=== PATIENT | female | born 1955 | race Caucasian/White ===

== ENCOUNTER 2016-07-02 23:35 | Inpatient (IN) | payer OTHER ==
[~2016-07-02] VITALS: Ht 163.8 cm; Wt 61.6 kg
[~2016-07-02 23:35] MED LIST: ACET-97 PO; ALEN35TA31 PO; ASCO500T8 PO; BENEDRYL PO; CA C1TAB87 PO; CHOL500011 PO; DIAZ5TAB3 PO; FLUT16SP2 NS; GABA-502 PO; LETR2.5T4 PO; MAG770OR3 PO; OMEP-113 PO; OXYC-245 PO; PAMPRIN PO; SOLI5TAB2 PO; SULI150T PO; [UNRECOGNIZED DRUG - OTHER] PO
[2016-07-02 23:36] VITALS: BP 156/98; PULSE 122; RESP 21; O2SAT 98
[2016-07-02 23:44] VITALS: BP 155/88; PULSE 118; RESP 23; O2SAT 100
[2016-07-02] MEDS ORDERED: 0.9% Sodium Chloride 1,000 ML IV ONE (23:49)
--- NOTE | 2016-07-02 23:49 | ED.REPORT ---
HPI-Chest Pain 40 and Over Date of Service July 02, 2016 ED Provider: Robina EspitiaO. A 60 year old female with a medical history including OA, GERD, and breast cancer s/p right mastectomy presents to the ED with pleuritic substernal chest pain onset 2300 this evening, waking her up. The pain is described as "pressure " and "tightness," with radiation into her neck and left jaw. The patient also reports shortness of breath. She denies cough, nausea, vomiting, or other symptoms. The patient has never had similar symptoms in the past. Nursing Notes Stated Complaint: CHEST PAIN Chief Complaint: Dysrhythmia/Cardiac Nursing Notes Reviewed: Yes Allergies: Coded Allergies: hydromorphone (Verified Allergy, Severe, SEVERE DRUGGED FEELING + NAUSEA, 03/13/13) hydrocodone (Verified Adverse Reaction, Severe, NAUSEA, 03/13/13) oxybutynin (Verified Adverse Reaction, Severe, DRY MOUTH, LIGHT-HEADED, ) sumatriptan (Verified Adverse Reaction, Severe, NAUSEA, TACHYCARDIA, LIGHT -HEADED, 03/13/13) sumatriptan succinate (Verified Adverse Reaction, Severe, NAUSEA, TACHYCARDIA, LIGHT-HEADED, 03/13/13) tolterodine tartrate (Verified Adverse Reaction, Unknown, DECREASED LIBIDO , 05/14/14) Uncoded Allergies: DIETARY (Adverse Reaction, Severe, JOINT PAIN,CONNOLLY,SCRATCHY THROAT, 03/13/13) CLAUDIO'S YEAST,BLACK TEA,MUNG SILVERIO SPROUTS,HONEY,CINNAMON,MSG,SODIUM BENZOATE,SACCHARIN,ASPERTAME,SULFUR DIOXIDE Scheduled ([Dante B Supplement]) 1 CAP PO BID 2 IN AM; 1 IN PM ([Pamprin]) 2 TAB PO PRN ([Benedryl]) 25 MG PO HS PRN Acetaminophen (Apap) 500 Mg Tablet 500-1,000 MG PO PRN Alendronate (Alendronate) 35 Mg Tablet 70 MG PO QW Ascorbic Acid (Vitamin C) 500 Mg Tablet 500 MG PO DAILY Ca Carbonate/Vitamin D3/Vit K (Citracal Soft Chew) 1 Each Tab.chew 1 EACH PO TID Cholecalciferol (Vitamin D3) (Vitamin D3) 5,000 Unit Tablet 5,000 UNIT PO DAILY Fluticasone Propionate (Flonase Nasal) 16 Gm [place].susp 1 SPRAY NS PRN Gabapentin (Gabapentin) 300 Mg Capsule 300 MG PO HS Letrozole (Letrozole) 2.5 Mg Tablet 2.5 MG PO DAILY Mag Hydrox/Al Hydrox/Simeth (Maalox Advanced Suspension) 770 Ml Oral.susp 30 ML PO PRN Omeprazole Magnesium (Omeprazole) 20 Mg Capsule.dr 20 MG PO BID Solifenacin Succinate (Vesicare) 5 Mg Tablet 5 MG PO AM Sulindac (Sulindac) 150 Mg Tablet 150 MG PO BID Scheduled PRN Diazepam (Diazepam) 5 Mg Tablet 2.5 MG PO HS PRN PRN For Anxiety Oxycodone HCl/Acetaminophen (Percocet 10-325 mg Tablet) 1 Each Tablet 0.5-1 TAB PO Q4 PRN PRN For Pain General Time Seen by MD: 23:49 Chief Complaint Chest pain Hx Obtained From: Patient Arrived By: Walk-in Sudden in Onset?: Yes Onset Occurred: 46 - 59 minutes ago Context of Onset: Sleeping Symptom Duration: Since onset Location: : Substernal Quality: Painful Radiation: : Jaw: Neck Severity: Current: Moderate Severity: Maximum: Moderate Pertinent Negative: Relieved by nothing Context Related History: Reports: GERD Recent Healthcare: No recent doctor visit Similar Sx Previous: No Past Medical History Past Medical History Breast cancer OA Clavicle fx GERD Over-active bladder Reports: Urinary tract infection Past Surgical History Knee surgeries Radial keratotomiesx4 Oral surgery T&A Breast biopsy RFA Rt leg Right mastectomy and reconstruction Reports: Tonsillectomy Smoking History Unknown if Ever Smoker Social History Alcohol Use: 1-3 per week Other Social History: Good social support Ambulatory Status Independent Review of Systems Review of Systems Note: + Left jaw pain Constitutional: Denies: Fever Respiratory: Reports: Pleuritic pain, Shortness of breath, Denies: Non-productive cough Cardiovascular: Reports: Chest pain (Substernal) GI: Denies: Diarrhea, Nausea, Vomiting Musculoskeletal: Reports: Neck pain Complete sys rev & neg: except as marked. Physical Exam Initial Vital Signs Vital Signs (First) Date Time Temp Pulse Resp B/P Pulse Ox O2 Delivery O2 Flow Rate FiO2 07/02/16 23:36 36.4 122 21 156/98 98 Room Air Initial VS: Reviewed Head / Eyes: Atraumatic, Normocephalic ENT: Conjunctiva normal, No scleral icterus Neck: Supple, Full range of motion Skin: Warm, Dry, No cyanosis Neurologic: Alert, Oriented, Nonfocal Psychiatric: Mood/affect normal, Behavior normal, Normal thought content General/Constitutional: Awake, Alert, No acute distress Respiratory / Chest: Breath sounds NL, Breath sounds = bilat, No respiratory distress Cardiovascular: Regular rhythm, Heart sounds NL Heart Rate / Rhythm: Positive: Tachycardia Abdomen: Soft, Non-tender Interpretation & Diagnostics Lab Results Interpretation Result Diagram: 07/03/16 0007 07/03/16 0007 Test 07/03/16 00:07 07/03/16 02:25 07/03/16 02:50 White Blood Count 10.1th/mm3 (3.8-10.1) Red Blood Count 4.94mil/mm3 (3.90-5.20) Hemoglobin 15.1g/dL (12.0-15.6) Hematocrit 43.3% (35.0-46.0) Mean Corpuscular Volume 87.7fL (81-100) Mean Corpuscular Hemoglobin 30.6pg (27.0-35.0) Mean Corpuscular Hemoglobin Concent 34.9% (32.0-37.0) Red Cell Distribution Width 12.9% (12.3-15.4) Platelet Count 222bil/L (150-400) Neutrophils (%) (Auto) 65.4% (40-74) Lymphocytes (%) (Auto) 27.3% (14-46) Monocytes (%) (Auto) 5.7% (4-12) Eosinophils (%) (Auto) 1.3% (0-5) Basophils (%) (Auto) 0.1% (0-3) Prothrombin Time 9.7sec (8.1-12.5) Prothromb Time International Ratio 0.91ratio D-Dimer < 0.50mg/L FEU (<0.50) Sodium Level 135mEq/L (134-144) Potassium Level 3.3mEq/L (3.5-5.2) Chloride Level 96mEq/L (97-108) Carbon Dioxide Level 25mmol/L (18-29) Blood Urea Nitrogen 26mg/dL (6-24) Creatinine 0.68mg/dL (0.57-1.00) Estimat Glomerular Filtration Rate 127mL/min (>59) Glucose Level 108mg/dL (60-99) Lactic Acid Level 1.5mmol/L (0.4-2.0) Calcium Level 9.6mg/dL (8.5-10.1) Magnesium Level 2.1mg/dL (1.6-2.6) Total Bilirubin 0.3mg/dL (0.0-1.2) Aspartate Amino Transf (AST/SGOT) 30U/L (0-50) Alanine Aminotransferase (ALT/SGPT) 22U/L (0-32) Alkaline Phosphatase 53U/L (25-165) Pro-B-Type Natriuretic Peptide 30.22pg/mL (0-287) Total Protein 7.6g/dL (6.4-8.4) Albumin 4.8g/dL (3.4-5.0) Hold Barrera Top Tube Received (Received) ECG Interpretation ECG Interpretation: Sinus tachycardia rate 107 Otherwise normal Time: 23:47 Interpreted by: ED physician ECG Interpretation: Sinus rhythm rate 97 Time: 01:40 Interpreted by: ED physician X-Ray Chest Interpretation Chest Xray Interpretation: Normal View: Portable, 1 view Interpretation / Wet Read by: Wet read ED physician CT Chest Interpretation IMPRESSION: No acute occlusive PE. Atherosclerotic disease. Early signs of interstitial and right upper lobe pneumonia. Other findings above. Transmitted to ED at 07/03/2016 - 2:11:34 AM PDT Study type: CT pulm angiogram Interpretation / Wet Read by: Wet read ED physician, Interpret - Radiologist ( Huyen Fritz M.D.) Re-Eval/Medical Decision Med Decision/Clinical Course Very pleasant 60-year-old female presents tachycardic pleuritic chest pain. Symptoms started tonight. On examination showed crackles in the right upper lobe and left mid lung. She was tachycardic as high as 125. She is tachypneic at about 24. EKG showed sinus tachycardia. Chest x-ray looked normal to me. White blood cell count was upper limits of normal other laboratory work is reassuring. Pulmonary emboli was in the differential with her past medical history malignancy. She became relatively hypotensive and persistently tachycardic. She was fluid resuscitated. CT [place] was performed to evaluate for pulmonary embolus. A CT [place] shows right upper lobe opacity consistent with pneumonia. She also has interstitial pattern as well. Assessment pneumonia with pleuritic chest pain. Plan Mrs. Avery is still tachycardic. She has had about a 40 mmHg drop in her systolic blood pressure. She still having ongoing pleuritic chest pain. I am going to admit her to hospital for IV antibiotics. We will send off sputum as well as serum testing for mycobacteria. 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 We will admit her to the progressive care unit due to her soft blood pressure and persistent tachycardia. Time of Eval: 02:45 Patient Status: Condition improved Re-Evaluation/Progress Note: Discussed with patient lab, x-ray, and CT results, diagnosis, and plan for admit. Patient agrees with plan for care and all questions were addressed. Consultation : Referral / Consult Name: Christianne Fletcher DO Consulted With: Hospitalist Call Returned at: 02:48 Sign Installer: Agrees with eval, Agrees with plan, Accepts admit Counseled Regarding: Diagnosis, Lab results, Need for admission Discharge & Departure Primary Impression: Pneumonia Pneumonia type: due to unspecified organism Laterality: right Lung location : upper lobe of lung Qualified Code: J18.1 - Lobar pneumonia, unspecified organism Additional Impressions: Tachycardia Chest pain Chest pain type: chest pain on breathing Qualified Code: R07.1 - Chest pain on breathing Disposition: ADMITTED TO HOSPITAL Discharge Condition All VS Reviewed: Yes Condition: Improved Referrals: Jimmy Jaramillo MD (PCP) Parish Attestation Portions of this note were transcribed by Cleopatra Garcia. I, Dr. Griffith, personally performed the history, physical exam, and medical decision-making; I reviewed and confirmed the accuracy of the information in the transcribed note. Signed by: Parish Allen, 07/03/2016, 03:05 copies to: Jimmy Jaramillo MD, Todd P DO July 02, 2016 23:49 CLEOPATRA GARCIA July 03, 2016 00:07
[2016-07-03] VITALS (10 sets, daily range): BP systolic 104–138; BP diastolic 64–90; PULSE 58–104; RESP 16–26; O2SAT 95–100
[2016-07-03] MEDS ORDERED: fentaNYL-PF 50 mCg/mL 2 mL Inj IVPUSH PRN ×2 (00:05→03:25)
[2016-07-03 00:12] LABS: BASOPHILS % (AUTO) 0.1 % (0-3); EOSINOPHILS % (AUTO) 1.3 % (0-5); MONOCYTES % (AUTO) 5.7 % (4-12); Mean Corpuscular Hemoglobin 30.6 pg (27.0-35.0); Mean Corpuscular Volume 87.7 fL (81-100); NEUTROPHILS % (AUTO) 65.4 % (40-74); Platelet Count 222 bil/L (150-400)
[2016-07-03 00:28] LABS: D-Dimer < 0.50 mg/L FEU (<0.50); INR 0.91 ratio
[2016-07-03 00:46] LABS: Magnesium 2.1 mg/dL (1.6-2.6); TROPONIN T 0.01 ug/L (0.0-0.011)
[2016-07-03] MEDS ORDERED: 0.9% Sodium Chloride 1,000 ML IV ONE ×2 (01:55→02:45)
[2016-07-03] MEDS ORDERED: Piperacillin-Tazo 3.375 Gm Inj 3.375 GM in Dextrose 5% Minibag Plus 50 ML IV ONE (02:25)
[2016-07-03] MEDS ORDERED: Ondansetron 2 mg/mL 2 mL Inj IVPUSH PRN (03:15)
[2016-07-03] MEDS ORDERED: Alum-Mag Hydrox-Simeth 30 mL Suspension PO PRN ×2 (03:15→03:25)
[2016-07-03] MEDS ORDERED: Albuterol 2.5 mg/3 mL Inhalation Solution NEB PRN (03:25)
[2016-07-03] MEDS ORDERED: Polyethylene Glycol (PEG) 17 Gm Powder PO PRN (03:25)
[2016-07-03] MEDS ORDERED: Fluticasone 0.05% 15 Spray/2 Gm 16 Gm Nasal Spray NASAL PRN (03:35)
[2016-07-03] MEDS ORDERED: oxyCODONE-Acetamin 10-325 mg Tablet PO PRN (03:35)
[2016-07-03] MEDS ORDERED: diphenhydrAMINE 25 mg Capsule PO PRN (03:35)
[2016-07-03] MEDS ORDERED: Vancomycin Inj 1,250 MG in 0.9% Sodium Chloride 250 ML IV ONE (03:45)
--- NOTE | 2016-07-03 03:50 | PCM.HPMED ---
Subjective Date of Service July 03, 2016 Primary Provider: Admitting Physician: Christianne Fletcher DO Primary Care Physician: Jimmy Jaramillo MD Attending Physician: Christianne Fletcher DO Chief Complaint: Chest pain with inhalation History of Present Illness: Claudia Michelle is a 60 year old woman with a PMH of OA, GERD, ductal carcinoma of the right breast s/p mastectomy radiation and chemotherapy in 2011, who presents having woken this evening with chest pain on deep inspiration localized to the right sternal border around rib 3 with radiation to the jaw. She states that prior to this she was feeling well, and that she has not experienced similar symptoms in the past. Her last oncology check up was in February and was apparently reassuring, she continues on hormonal chemotherapy with Letrozole. She denies cough, fevers, chills, nausea, vomiting, hemoptysis, unintentional weight loss, or changes in bowel or bladder habits. She describes the pain as a pressure and tightness in the right sternal area 7-8/10 at it's worst and aggravated by deep inspiration. She denies any travel overseas or to the [facility], her most recent trip was a weekend in [facility] where she did not engage in any outdoor activities. 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 In the ED that patient was found to be tachycardic and mildly hypertensive which together with her suggestive history prompted a CT angio which was negative for PE but was suggestive of early RUL and interstitial pneumonia. Troponin was negative x2 and the patient's laboratory evaluation was largely unremarkable. Review of Systems: Comprehensive ROS negative except as listed above in the HPI Allergies Coded Allergies: hydromorphone (Verified Allergy, Severe, SEVERE DRUGGED FEELING + NAUSEA, 03/13/13) hydrocodone (Verified Adverse Reaction, Severe, NAUSEA, 03/13/13) oxybutynin (Verified Adverse Reaction, Severe, DRY MOUTH, LIGHT-HEADED, ) sumatriptan (Verified Adverse Reaction, Severe, NAUSEA, TACHYCARDIA, LIGHT -HEADED, 03/13/13) sumatriptan succinate (Verified Adverse Reaction, Severe, NAUSEA, TACHYCARDIA, LIGHT-HEADED, 03/13/13) tolterodine tartrate (Verified Adverse Reaction, Unknown, DECREASED LIBIDO , 05/14/14) Uncoded Allergies: DIETARY (Adverse Reaction, Severe, JOINT PAIN,CONNOLLY,SCRATCHY THROAT, 03/13/13) CLAUDIO'S YEAST,BLACK TEA,MUNG SILVERIO SPROUTS,HONEY,CINNAMON,MSG,SODIUM BENZOATE,SACCHARIN,ASPERTAME,SULFUR DIOXIDE Home Medications Scheduled ([Dante B Supplement]) 1 CAP PO BID 2 IN AM; 1 IN PM ([Pamprin]) 2 TAB PO PRN ([Benedryl]) 25 MG PO HS PRN Acetaminophen (Apap) 500 Mg Tablet 500-1,000 MG PO PRN Alendronate (Alendronate) 35 Mg Tablet 70 MG PO QW Ascorbic Acid (Vitamin C) 500 Mg Tablet 500 MG PO DAILY Ca Carbonate/Vitamin D3/Vit K (Citracal Soft Chew) 1 Each Tab.chew 1 EACH PO TID Cholecalciferol (Vitamin D3) (Vitamin D3) 5,000 Unit Tablet 5,000 UNIT PO DAILY Fluticasone Propionate (Flonase Nasal) 16 Gm [place].susp 1 SPRAY NS PRN Gabapentin (Gabapentin) 300 Mg Capsule 300 MG PO HS Letrozole (Letrozole) 2.5 Mg Tablet 2.5 MG PO DAILY Mag Hydrox/Al Hydrox/Simeth (Maalox Advanced Suspension) 770 Ml Oral.susp 30 ML PO PRN Omeprazole Magnesium (Omeprazole) 20 Mg Capsule.dr 20 MG PO BID Solifenacin Succinate (Vesicare) 5 Mg Tablet 5 MG PO AM Sulindac (Sulindac) 150 Mg Tablet 150 MG PO BID Scheduled PRN Diazepam (Diazepam) 5 Mg Tablet 2.5 MG PO HS PRN PRN For Anxiety Oxycodone HCl/Acetaminophen (Percocet 10-325 mg Tablet) 1 Each Tablet 0.5-1 TAB PO Q4 PRN PRN For Pain PMH Right infiltrating ductal carcinoma of the breast s/p radiation, chemo, and mastectomy with reconstruction OA Clavicle fx GERD Over-active bladder Reports: Urinary tract infection Surgical History Knee surgeries Radial keratotomiesx4 Oral surgery T&A Breast biopsy RFA Rt leg Right mastectomy and reconstruction Reports: Tonsillectomy Family History 2 cousins with breast cancer(1 male) Father age 72 of [place] Mother age 89 with dementia Uncle with lung and brain cancer Social History Occupation: Infusion nurse in oncology Hx Alcohol Use: Yes (RARELY) Hx Substance Use: No Hx Tobacco Use: No Smoking Status: Unknown if Ever Smoker Living Arrangement: with Family Exam Vital Signs Vital Sign - Last Date Time Temp Pulse Resp B/P Pulse Ox O2 Delivery O2 Flow Rate FiO2 07/03/16 02:14 36.7 101 26 111/71 97 Room Air Intake and Output 07/02/16 07/02/16 07/03/16 Cumulative From/Thru 15:00 23:00 07:00 07/02/16 23:36 - 07/03/16 00:00 Intake Total 1000 ml 1000 ml Balance 1000 ml 1000 ml Intake IV Total 1000 ml 1000 ml Exam Gen: A/O x3 pleasant cooperative woman in mild acute distress secondary to chest pain with inspiration Neck: Supple, non tender, no thyromegaly, no JVD, Full ROM HEENT: PERRL, EOMI, no scleral icterus, no conjunctival pallor, mucous membranes moist CV: RRR, no murmurs rubs or gallops Resp: Lungs CTA BL, no wheezing rales or rhonchi, pain with deep inspiration Chest: Reconstructed right breast, no tenderness to sternal palpation Abd: Soft, non tender, no organomegaly, no rebound masses or guarding Extr: No cyanosis clubbing or edema, good muscle tone Neuro: CN 2-12 grossly intact, no focal neurologic deficit Psych: pleasant and appropriate mood and affect. Lab and Diagnostics Labs Item Value Date Time Red Blood Count 4.94 mil/mm3 07/03/166 Neutrophils (%) (Auto) 65.4 % 07/03/166 Lymphocytes (%) (Auto) 27.3 % 07/03/166 Monocytes (%) (Auto) 5.7 % 07/03/166 Eosinophils (%) (Auto) 1.3 % 07/03/166 Basophils (%) (Auto) 0.1 % 07/03/166 Estimat Glomerular Filtration Rate 127 mL/min 07/03/166 Calcium Level 9.6 mg/dL 07/03/166 Magnesium Level 2.1 mg/dL 07/03/166 Total Bilirubin 0.3 mg/dL 07/03/166 Aspartate Amino Transf (AST/SGOT) 30 U/L 07/03/166 Alanine Aminotransferase (ALT/SGPT) 22 U/L 07/03/166 Alkaline Phosphatase 53 U/L 07/03/166 Troponin T 0.010 ug/L 07/03/166 Pro-B-Type Natriuretic Peptide 30.22 pg/mL 07/03/166 Total Protein 7.6 g/dL 07/03/166 Albumin 4.8 g/dL 07/03/166 Procalcitonin 0.06 ng/mL 07/03/16224 Troponin T 0.010 ug/L 07/03/16224 Lactic Acid Level 1.5 mmol/L 07/03/166 Result Diagram: 07/03/16607/03/166 Microbiology Quantiferon Gold Pending Resp PCR pending S.pneumonia urine antigen pending Blood culture pending X-Rays, CTs and MRIs CXR official read pending: personal read no acute cardiopulmonary process CT agniogram per nighthawk: No acute occlusive PE. Atherosclerotic disease. Early signs of interstitial and right upper lobe pneumonia. Other findings above. Transmitted to ED at 07/03/2016 - 2:11:34 AM PDT 12-lead ECG Sinus tach at 107 Assessment & Plan Claudia Michelle is a 60 year old woman with a PMH of right infiltrating ductal carcinoma of the breast s/p chemotherapy, radiation, and mastectomy with reconstruction in 2011, OA, and GERD who presents this evening having woken from sleep with right sided chest pain with deep inspiration with radiation to the jaw. Evaluation in the ED revealed negative Troponin with no ECG changes, CT angio not indicative of PE, and RUL pneumonia with possible interstitial pneumonia. 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 and did not include any outdoor activities. 1. RUL healthcare associated pneumonia, POA, acute. Active -Imaging suggestive of early RUL pneumonia with likely interstitial pneumonia -Vanco, Zosyn, and Levofloxacin for HCAP coverage -DuoNeb PRN -Patient with regular exposure to ill and immune compromised individuals -No cavitary lesion on imaging -No hemoptysis or unintentional weight loss -No recent travel overseas or to the [facility] or other Aspergillus endemic regions with the possible exception of a trip to [place] last month -Laboratory evaluation unremarkable -Overall low suspicion for TB or aspergillosis -Quantiferon Gold ordered in ED -Droplet precautions initiated -Respiratory PCR pending, s.pneumo urine antigen pending -Low threshold to narrow or discontinue Abx given benign lab evaluation 2. Pain with deep inspiration, POA, acute. Active -D-Dimer negative and CT angio not indicative of PE -Likely secondary to the above -Hx of thoracic radiation exposure in 2011, no prior symptoms -Continue home Oxycodone 10-325 -Fentanyl 25-50 mcg for severe pain not controlled with PO medication 3. History of right breast cancer, POA, chronic. Stable -s/p radiation therapy 2011, chemotherapy with ongoing Letrozole therapy, mastectomy with reconstruction 2011 -Delayed onset radiation pneumonitis, but interval between radiation therapy and sudden onset of symptoms renders this less likely -Continue home Letrozole 2.5 mg PO daily 4. Osteopenia, POA, chronic. Active -Continue home Alendronate -Continue home calcium supplement Other chronic conditions managed with home meds Neuropathy: Continue home Gabapentin 300 PO HS Anxiety: Continue home Diazepam 2.5 PO HS PRN GERD: Famotidine 20 mg PO q12 Allergic Rhinitis: Continue home Fluticasone 0.05% nasal spray PRN Code Status: FULL CODE Disposition: inpatient, anticipated length of stay >2 midnights due to severity of condition and complexity of treatment program. Pain Evaluation: Adequate Pain Control GI Prophylaxis: H2 ros VTE Prophylaxis: Sub-Q Enoxaparin VTE Mechanical Devices: Intermittant Pneumatic CD Resuscitation Status: CPR: Attempt Resuscitation Lorenzo Tovar DO July 03, 2016 03:50
[2016-07-03 06:18] LABS: APPEARANCE,URINE CLEAR (CLEAR,HAZY); COLOR,URINE STRAW (YELLOW); OCCULT BLOOD,URINE NEGATIVE (NEGATIVE); PH,URINE 6.5 (5.0-8.0); UROBILINOGEN,URINE NORMAL (NORMAL)
[2016-07-03] MEDS ORDERED: OXYC1TAB91 PO (06:27)
[2016-07-03] MEDS ORDERED: OMEP20TA24 PO (06:27)
[2016-07-03] MEDS ORDERED: ACET-171 PO (06:27)
[2016-07-03] MEDS ORDERED: ASCO500C6 PO (06:27)
--- NOTE | 2016-07-03 06:28 | NUR ---
Admit Pt arrived on unit #[id number] from ED via stretcher at 0525 with all personal belongings. Able to transfer self to bed. VSS. Pain with respirations '2" out of 10. Oriented to room, hospital policy, and call light. Bed locked, low position. Non skid socks and SBA for safety. Call light within reach, using appropriately. Pleasant and cooperative with care.
[2016-07-03 07:25] LABS: BASOPHILS % (AUTO) 0.1 % (0-3); EOSINOPHILS % (AUTO) 0.1 % (0-5); Mean Corpuscular Volume 88.9 fL (81-100); NEUTROPHILS % (AUTO) 82.2 % (40-74); Platelet Count 167 bil/L (150-400)
[2016-07-03 07:40] LABS: Magnesium 2.2 mg/dL (1.6-2.6); Phosphorus 2.9 mg/dL (2.5-4.9)
[2016-07-03] MEDS ORDERED: Calcium Carbonate (Oyster Shell) 500 mg Tablet PO SCH ×2 (08:30→10:16)
[2016-07-03] MEDS ORDERED: Vancomycin Dose per Pharmacist XX SCH (08:30)
[2016-07-03] MEDS ORDERED: Piperacillin-Tazo 3.375 Gm Inj 3.375 GM in Dextrose 5% Minibag Plus 50 ML IV SCH (08:30)
[2016-07-03] MEDS: levoFLOXacin Inj 750 MG in IV Premix 1 EACH IV SCH ×2 (08:30→10:32)
[2016-07-03] MEDS: SOLIFENACIN PO SCH (08:30)
--- NOTE | 2016-07-03 09:42 | DRSVH ---
PROCEDURE: X-RAY CHEST ONE VIEW, PORTABLE ([id number]) INDICATIONS: chest pain TECHNIQUE: One view of the chest was acquired. COMPARISON: [facility], , CHEST 2VW, 05/04/2011, 12:07. FINDINGS: Surgical changes and devices: Scattered surgical clips.. Lungs and pleura: No pleural effusions or pneumothorax. Lungs are clear. Mediastinum: Mediastinal contours appear normal. Heart size is normal. Bones and chest wall: No suspicious bony lesions. Overlying soft tissues appear unremarkable. IMPRESSION: No acute disease Dictated by: Jose Beverly M.D. on 07/03/2016 at 9:40 Approved by: Jose Beverly M.D. on 07/03/2016 at 9:40
--- NOTE | 2016-07-03 09:53 | DRSVH ---
PROCEDURE: CT ANGIO CHEST PULMONARY EMBOLISM ([id number]) INDICATIONS: pleuritic pain, tachycardic TECHNIQUE: After the administration of intravenous contrast, 2 mm thick sections acquired from the pulmonary api claudia to the posterior costophrenic angles. 3-dimensional maximum intensity projection (MIP) coronal a nd sagittal reformats were then acquired through the thorax. For radiation dose reduction, the follo wing was used: automated exposure control, adjustment of mA and/or kV according to patient size. COMPARISON: [facility], CR, CHEST 2VW, 05/04/2011, 12:07. [facility], CR, XR CHEST 1VW (PORTABLE), 07/02/2016, 23:51. FINDINGS: Image quality: Excellent. Pulmonary arteries: Pulmonary arteries are normal in size, and demonstrate no intraluminal filling d efects to suggest central pulmonary embolism. Lungs and pleura: There is questionable bilateral interlobular septal thickening. There are scattered groundglass opacities. Bibasal atelectasis is present. Patchy consolidation, presumably scarring in the right apex Mediastinum: Heart size is normal, without pericardial effusion. No mediastinal or hilar adenopathy . Thoracic aorta is normal in caliber and enhancement. Esophagus is normal in caliber, without hiat al hernia. Bones and chest wall: No suspicious bony lesions. Ribs and thoracic spine appear intact throughout. Thyroid gland is heterogeneous otherwise unremarkable. No axillary or supraclavicular adenopathy. Abdomen: Visualized upper abdominal solid organs appear normal in the early arterial phase of enhanc ement. IMPRESSION: No evidence of pulmonary embolism. Possible developing/early pulmonary edema. Right apical presumed scarring/atelectasis although technically indeterminate. This could be followed up with serial PA and lateral chest radiographs, or CT surveillance at clinical discretion. Dictated by: Jose Beverly M.D. on 07/03/2016 at 9:46 Approved by: Jose Beverly M.D. on 07/03/2016 at 9:51
[2016-07-03] MEDS: Ascorbic Acid 500 mg Tablet PO SCH (10:31)
[2016-07-03] MEDS ORDERED: Nystatin 100,000 Unit/Gm 15 Gm Powder TOPICAL PRN (12:20)
--- NOTE | 2016-07-03 13:05 | NUR ---
0830 Levofloxacin Per MD Galindo orders, do not administer IV Levofloxacin. Zosyn infusing, will SL after administration.
--- NOTE | 2016-07-03 13:20 | PCM.PNMED ---
Subjective Date of Service July 03, 2016 Subjective Still has a liitle of thei sharp sharp substernal cp but only with a very deep breath. Really no sumptoms to suggest pneumonia. H/o ratiation to right chest for breast cancer. No other complaints today. Exam Vital Signs Vital Sign - Last Date Time Temp Pulse Resp B/P Pulse Ox O2 Delivery O2 Flow Rate FiO2 07/03/16 11:25 103 07/03/16 10:21 36.7 18 138/90 96 Room Air Intake and Output 07/02/16 07/02/16 07/03/16 Cumulative From/Thru 15:00 23:00 07:00 07/02/16 23:36 - 07/03/16 05:50 Intake Total 1000 ml 1000 ml Balance 1000 ml 1000 ml IV Total 1000 ml 1000 ml Exam Eyes, eom intact Skin; no rash CV; S1S2 present, possible 1/6 systolic murmur, no edema, no JVD Resp, clear GI soft non acute Lab and Diagnostics Result Diagram: 07/03/16 0703 07/03/16 0703 Microbiology Quantiferon Gold Pending Resp PCR pending S.pneumonia urine antigen pending Blood culture pending X-Rays, CTs and MRIs CXR official read pending: personal read no acute cardiopulmonary process CT agniogram per nighthawk: No acute occlusive PE. Atherosclerotic disease. Early signs of interstitial and right upper lobe pneumonia. Other findings above. Transmitted to ED at 07/03/2016 - 2:11:34 AM PDT 12-lead ECG Sinus tach at 107 Assessment & Plan Claudia Michelle is a 60 year old woman with a PMH of right infiltrating ductal carcinoma of the breast s/p chemotherapy, radiation, and mastectomy with reconstruction in 2011, OA, and GERD who presents this evening having woken from sleep with right sided chest pain with deep inspiration with radiation to the jaw. Evaluation in the ED revealed negative Troponin with no ECG changes, CT angio not indicative of PE, and RUL pneumonia with possible interstitial pneumonia. 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 1. RUL healthcare associated pneumonia, POA, acute. Active -no cough, fever or other symptoms, minimally elevated procal -change antibiotics to Azithro and Rocephin, -repeat porcal in am and cbc, if OK consider stopping antibiotics 2. Pain with deep inspiration, POA, acute. improving -D-Dimer negative and CT angio not indicative of PE -Hx of thoracic radiation exposure in 2011, no prior symptoms -suspect mechanical strain as patient was turning over when it started in bed -however will monitor patient with serial troponins and an echo to checkk heart function 3. History of right breast cancer, POA, chronic. Stable -s/p radiation therapy 2011, chemotherapy with ongoing Letrozole therapy, mastectomy with reconstruction 2011 -Delayed onset radiation pneumonitis, but interval between radiation therapy and sudden onset of symptoms renders this less likely -Continue home Letrozole 2.5 mg PO daily 4. Osteopenia, POA, chronic. Active -Continue home Alendronate -Continue home calcium supplement Other chronic conditions managed with home meds Neuropathy: Continue home Gabapentin 300 PO HS Anxiety: Continue home Diazepam 2.5 PO HS PRN GERD: Famotidine 20 mg PO q12 Allergic Rhinitis: Continue home Fluticasone 0.05% nasal spray PRN Code Status: FULL CODE Disposition: inpatient, anticipated length of stay >2 midnights due to severity of condition and complexity of treatment program. GI Prophylaxis: H2 ros VTE Prophylaxis: Sub-Q Enoxaparin VTE Mechanical Devices: Intermittant Pneumatic CD Resuscitation Status: CPR: Attempt Resuscitation Shaunna Galindo MD July 03, 2016 13:20 Code Status: FULL CODE Disposition: inpatient, anticipated length of stay >2 midnights due to severity of condition and complexity of treatment program. GI Prophylaxis: H2 ros VTE Prophylaxis: Sub-Q Enoxaparin VTE Mechanical Devices: Intermittant Pneumatic CD Resuscitation Status: CPR: Attempt Resuscitation Shaunna Galindo MD July 03, 2016 13:20
--- NOTE | 2016-07-03 14:23 | NUR ---
Social Work: Screening Data: Pt is a 60 y/o female admitted for pneumonia, tacycardia, chest pain. Pt's PCP is Dr Jaramillo, pt's insurance is [facility]. NO readmit score listed. EMR reviewed. No d/c planning needs anticipated at this time. LICENSE CLERK will continue to follow if needs arise. Assessment: Pt who is independent at baseline. Plan: Pt will d/c home via POV when medically stable. No d/c planning needs anticipated at this time. LICENSE CLERK will continue to follow if needs arise. DINORA Turcios
[2016-07-03] MEDS: cefTRIAXone Inj 2,000 MG in Dextrose 5% Minibag Plus 50 ML IV SCH (15:07)
[2016-07-03] MEDS ORDERED: Vancomycin Inj 1,000 MG in IV Premix 1 EACH IV SCH (17:30)
--- NOTE | 2016-07-03 17:32 | NUR ---
Respiratory/Pain with inspiration No reports of chest pain/pressure/discomfort. Tele SR 96, no ectopy. Distal pulses palpable. No reports of SOB at rest or with exertion. SPo2 on RA 96%. Reports intermittent non productive cough, 2-3/10 substernal pain with deep inspirations. Reported very mild nausea this AM, subsided with no intervention. No emesis, no abdominal pain, reporting loose BM this AM x1 -- paged, probiotic ordered. Voiding without complication. Tolerating PO intake well.
[2016-07-03] MEDS: Magnesium Chloride SR 64 mg ER24 Tablet PO SCH (20:25)
[2016-07-04] VITALS (13 sets, daily range): BP systolic 102–146; BP diastolic 51–91; PULSE 84–121; RESP 16–18; O2SAT 95–98
[2016-07-04] MEDS ORDERED: Diltiazem 5 mg/mL 5 mL Inj IVPUSH ONE (05:10)
[2016-07-04 06:33] LABS: BASOPHILS % (AUTO) 0.4 % (0-3); EOSINOPHILS % (AUTO) 1.6 % (0-5); MONOCYTES % (AUTO) 8.6 % (4-12); Mean Corpuscular Hemoglobin 30.6 pg (27.0-35.0); Mean Corpuscular Volume 88.6 fL (81-100); NEUTROPHILS % (AUTO) 64.2 % (40-74); Platelet Count 193 bil/L (150-400)
[2016-07-04 06:47] LABS: TROPONIN T 0.01 ug/L (0.0-0.011)
--- NOTE | 2016-07-04 07:11 | NUR ---
A-fib RVR Pt had been SR 80S-90S until around 0500,tele called while primary RN taking break around 0500, Charge nurse Karen Glez received the call that A-fib RVR 130s-170s, pt c/o sweat,nausea,dry hives, pt states feel "heart racing",BP146/[address] Fletcher notified by charge nurse,stat EKG, Cardizem 5mg IV ordered and administered, pt converted to SR 90s in about 10min. Pt in and out a-fib 100-160 intermittently afterwards,but not sustain per electronic sales and service technician. Dr Fletcher called around 0640 and said she will call back. Report given to day shift RN.
--- NOTE | 2016-07-04 07:44 | NUR ---
transfer pt transferred in W/C by [facility] SENIOR SHAREPOINT DEVELOPER with N-95 mask on. Droplet precaution cart brought down with pt.
[2016-07-04 07:50] LABS: ERYTHROCYTE SEDIMENTATION RATE 20 mm/hr (0-40)
[2016-07-04] MEDS: SOLIFENACIN PO SCH (08:30)
[2016-07-04] MEDS ORDERED: ALENDRONATE 70 MG PO SCH (08:30)
[2016-07-04] MEDS: Ascorbic Acid 500 mg Tablet PO SCH (09:15)
[2016-07-04] MEDS: Azithromycin Inj 500 MG in Dextrose 5% w/Vial Mate 250 ML IV SCH (09:15)
[2016-07-04] MEDS: Magnesium Chloride SR 64 mg ER24 Tablet PO SCH ×3 (09:15→21:33)
--- NOTE | 2016-07-04 12:38 | PCM.PNMED ---
Subjective Date of Service July 04, 2016 Subjective Patient went into a fib last night, transferred to [facility] floor started on a dilt drip and has now spontaneity converted back to NSR. The residual pleuritic pain she had yesterday with deep breathing is now all gone. Little cough. Exam Vital Signs Vital Sign - Last Date Time Temp Pulse Resp B/P Pulse Ox O2 Delivery O2 Flow Rate FiO2 07/04/16 09:58 94 07/04/16 06:30 112/75 07/04/16 06:04 16 96 Room Air 07/04/16 04:55 36.6 Intake and Output 07/03/16 07/03/16 07/04/16 Cumulative From/Thru 15:00 23:00 07:00 07/02/16 23:36 - 07/04/16 06:20 Intake Total 0 ml 1600 ml 400 ml 3000 ml Output Total 300 ml 3825 ml 1450 ml 5575 ml Balance -300 ml -2225 ml -1050 ml -2575 ml Intake Oral 0 ml 1600 ml 400 ml 2000 ml IV Total 1000 ml Output Urine Total 300 ml 3825 ml 1450 ml 5575 ml # Bowel Movements 3 3 Exam Eyes, eom intact Skin; no rash CV; S1S2 present, possible 1/6 systolic murmur, no edema, no JVD Resp, clear GI soft non acute Lab and Diagnostics Result Diagram: 07/04/16 0555 07/04/16 0555 Microbiology Quantiferon Gold Pending Resp PCR pending S.pneumonia urine antigen pending Blood culture pending X-Rays, CTs and MRIs CXR official read pending: personal read no acute cardiopulmonary process CT agniogram per nighthawk: No acute occlusive PE. Atherosclerotic disease. Early signs of interstitial and right upper lobe pneumonia. Other findings above. Transmitted to ED at 07/03/2016 - 2:11:34 AM PDT 12-lead ECG Sinus tach at 107 Assessment & Plan Cluadia Michelle is a 60 year old woman with a PMH of right infiltrating ductal carcinoma of the breast s/p chemotherapy, radiation, and mastectomy with reconstruction in 2011, OA, and GERD who presents this evening having woken from sleep with right sided chest pain with deep inspiration with radiation to the jaw. Evaluation in the ED revealed negative Troponin with no ECG changes, CT angio not indicative of PE, and RUL pneumonia with possible interstitial pneumonia. 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 1. RUL community acquired pneumonia, POA, acute. Active -no cough, fever or other symptoms, minimally elevated procal -I changed antibiotics to Azithro and Rocephin yesterday -repeat porcal in am and cbc, if OK consider stopping antibiotics, and discharging patient home on few more days of antibiotics. 2. Pain with deep inspiration, POA, acute. resolved -D-Dimer negative and CT angio not indicative of PE -Hx of thoracic radiation exposure in 2011, no prior symptoms -suspect mechanical strain as patient was turning over when it started in bed -however will monitor patient with serial troponins and an echo to check heart function 3. New onset a-fib, resolved -monitor on tele -TSH, T4 = normal -Echocardiogram = normal -ASA 325 -depending on these results further management -I reviewed the tele strips, could be flutter, a fib, but I am not sure -consider cardiology consultation in AM 4. History of right breast cancer, POA, chronic. Stable -s/p radiation therapy 2011, chemotherapy with ongoing Letrozole therapy, mastectomy with reconstruction 2011 -Delayed onset radiation pneumonitis, but interval between radiation therapy and sudden onset of symptoms renders this less likely -Continue home Letrozole 2.5 mg PO daily 5. Osteopenia, POA, chronic. Active -Continue home Alendronate -Continue home calcium supplement 6. Possib tuberculosis, poa, active -by CT as it shows a apical scar or process which seems a bit high for radiation damage -while in hospital continue isolation but would not prclude her from going home -gold quataferon sent and should be resulted by this Tuesday Other chronic conditions managed with home meds Neuropathy: Continue home Gabapentin 300 PO HS Anxiety: Continue home Diazepam 2.5 PO HS PRN GERD: Famotidine 20 mg PO q12 Allergic Rhinitis: Continue home Fluticasone 0.05% nasal spray PRN Code Status: FULL CODE Disposition: inpatient, anticipated length of stay >2 midnights due to severity of condition and complexity of treatment program. GI Prophylaxis: H2 ros VTE Prophylaxis: Sub-Q Enoxaparin VTE Mechanical Devices: Intermittant Pneumatic CD Resuscitation Status: CPR: Attempt Resuscitation Shaunna Galindo MD July 04, 2016 12:38
--- NOTE | 2016-07-04 15:14 | DRSVH ---
[facility] [address] [place] [address] Echocardiogram Report Name: RAOUL DE ANDA TStudy Dario e: 07/04/2016 Height: 65 in Hospital Exam Location: [facility] Weight: 134 lb Gender: Female BSA: 1.7 m2 : 1955 Age: 60 yrs BP: 112/75 mmHg Reason For Study: CHEST PAIN Ordering Physician: CAPRICE LICEA Performed By: Brad Leone Referring Physician: Shannan CA Interpretation Summary The left ventricle is normal in size, wall thickness, and systolic function without any focal wall motion abnormalities with the ejection fraction visually estimated to be 60-65%. Assessment of diastolic parameters indicates normal left ventricular diastolic function and normal filling pressures. There has been no significant change since the previous study. The right ventricle is normal in size and function and is unchanged compared to the previous study. Pulmonary artery pressures cannot be estimated because of the lack of a measurable TR jet velocity but the IVC suggests a low right atrial pressure of 3 mm Hg. Both atria are normal in size and are unchanged compared to the previous study. There is no significant valvular heart disease. There has been no significant change since the previous study. Procedure: A two-dimensional transthoracic echocardiogram with color flow and Doppler was performed. The study quality was technically good. Comparison is made with the echocardiogram of 09/28/11. The patient was in normal sinus rhythm during the exam. Left Ventricle: The left ventricle is normal in size, wall thickness, and systolic function without any focal wall motion abnormalities. The ejection fraction is estimated to be 60-65%. Assessment of diastolic parameters indicates normal left ventricular diastolic function and normal filling pressures. There has been no significant change since the previous study. Right Ventricle: The right ventricle is normal in size and function. This is unchanged compared to the previous study. Atria: Both atria are normal in size. This is unchanged compared to the previous study. The interatrial septum is intact with no evidence for an atrial septal defect. Mitral Valve: The mitral valve leaflets appear mildly thickened, but open well. The mitral valve leaflets are slightly calcified. There is trace mitral regurgitation. This is unchanged compared to the previous study. Aortic Valve: The aortic valve is normal in structure and function. The aortic valve is trileaflet. The aortic valve opens well. No aortic regurgitation is present. Tricuspid Valve: The tricuspid valve is normal in structure and function. No tricuspid regurgitation. Pulmonary artery pressures cannot be estimated because of the lack of a measurable TR jet velocity. Pulmonic Valve: The pulmonic valve is not well seen, but is grossly normal. There is trace pulmonic regurgitation. There is no significant valvular heart disease. Great Vessels: The aortic root is normal size. The dimensions of the ascending aorta are normal. The pulmonary artery is normal size. The IVC is of normal diameter and collapses greater than 50% with a sniff. This suggests a low right atrial pressure of 3 mm Hg. Pericardium/ Pleura There is no pericardial effusion. There is no pleural effusion. MMode/2D Measurements & Calculations LVIDd: 4.4 cm LA dimension: 3.3 cm RA long axis Ao root diam LVIDs: 2.4 cm FS: 46.0 % LA A2 area: 16.4 cm RA area Aortic Jxn EPSS: 0.19 cm LA A4 area: 15.9 cm IVSd: 0.89 cm LA length (vol): 5.3 cm : 9.7 cm asc Aorta LVPWd: 0.68 cm LA vol: 41.9 ml RA vol: 22.0 mlDiam: 2.6 cm LA vol index RA : 13.2 mm2 IVC diam: 2.1 cm LV dhaliwal. diameter/BSA LV sys. diameter/BSA (cm/m^2): 2.6 (cm/m^2): 1.4 Doppler Measurements & Calculations Ao V2 max MV E max mason MV E/A: 1.1 PA V2 max: 73.5 cm/sec : 138.0 cm/sec : 65.3 cm/sec Med Peak E' Mason PA mean P.3 mmHg Ao max PG MV A max mason PA Accel Time: 0.15 sec : 7.6 mmHg : 57.0 cm/sec E/E' med: 7.0 Ao mean PG Pulm A Revs Dur : 3.8 mmHg MV A dur: 0.11 sec MV dec time Ao V2 mean PA V2 mean Pulm A Revs Dur - MV A : 0.20 sec : 93.8 cm/sec : 56.4 cm/sec Dur: 0.01 msec Ao V2 VTI : 26.0 cm Reading Physician:03:13 PM
[2016-07-04] MEDS: cefTRIAXone Inj 2,000 MG in Dextrose 5% Minibag Plus 50 ML IV SCH (16:01)
[2016-07-04] MEDS ORDERED: Vancomycin Serum Trough XX ONE (17:00)
--- NOTE | 2016-07-04 18:18 | NUR ---
Telemetry Update: Sinus Rhythm Patient has been Sinus Rhythm 80-100s. Between 04:13 and 10:00, patient had sporadic episodes of paroxysmal Afib - Aflutter 140-180s. Patient has remained in Sinus Rhythm since 10:00. DARRIAN Gerardo aware.
--- NOTE | 2016-07-04 18:40 | NUR ---
Tele/Improving pain No reports of chest pain/pressure/discomfort. Between 8685-8823, patient was in and out of AFIB/SR 110s-170s. Patient's HR began trending down, and by 1000 patient converted back to normal SR with no ectopy 80s-90s, patient has remained in normal SR with no ectopy 80s-90s throughout shift -- Distal pulses strong and palpable. Denies SOB, reports that substernal pain with deep inspiration has since ceased from yesterday. SPO2 on RA high 90s. Intermittent dry cough. No reports of nausea, no emesis, denies abdominal pain. Reports loose BM,patient states "probably from the antibiotics". Patient receiving probiotic. Voiding without complication.
[2016-07-05] VITALS (8 sets, daily range): BP systolic 108–131; BP diastolic 64–86; PULSE 70–90; RESP 15–20; O2SAT 97–99
[2016-07-05 03:34] LABS: BASOPHILS % (AUTO) 0.2 % (0-3); EOSINOPHILS % (AUTO) 2.6 % (0-5); MONOCYTES % (AUTO) 7.4 % (4-12); Mean Corpuscular Volume 88.5 fL (81-100); NEUTROPHILS % (AUTO) 47.6 % (40-74); Platelet Count 201 bil/L (150-400)
--- NOTE | 2016-07-05 06:33 | NUR ---
Tele: Tele has remained sinus rhythm through the night with rate in the 80s-90s. Denies chest pain, was medicated for joint pain only through the night. Was able to sleep for many hours, even after disruptions from care.
[2016-07-05] MEDS: SOLIFENACIN PO SCH ×2 (08:30→22:04)
[2016-07-05] MEDS: Magnesium Chloride SR 64 mg ER24 Tablet PO SCH ×3 (10:24→22:03)
[2016-07-05] MEDS: Ascorbic Acid 500 mg Tablet PO SCH (10:24)
[2016-07-05] MEDS: Azithromycin Inj 500 MG in Dextrose 5% w/Vial Mate 250 ML IV SCH (10:43)
[2016-07-05] MEDS ORDERED: AMOX1TAB11 PO (11:26)
[2016-07-05] MEDS ORDERED: ASPI325T32 PO (11:32)
--- NOTE | 2016-07-05 11:34 | PCM.DIMED ---
Nikkie Foss DO 07/05/16 1134: Discharge Instructions Date of Service July 05, 2016 Dates of Hospitalization July 03, 2016 at 03:12 Discharge Diagnosis Discharge Diagnosis 1. RUL community acquired pneumonia, POA, acute. Active 2. Pain with deep inspiration, POA, acute. resolved 3. New onset a-fib, resolved 4. History of right breast cancer, POA, chronic. Stable 5. Osteopenia, POA, chronic. Active 6. Possib tuberculosis, poa, active Medication Instructions Please continue to take full dose Aspirin. Please take 3 more days of antibiotics. Diet No restrictions Activity Limited until seen by PCP Call your provider Shortness of breath Patient Instructions You were cleared for discharge by our infectious disease doctor. Please follow up with your PCP in about 1 week. Please ask about outpatient appointment with cardiology regarding your new onset of Atrial fibrillation. Wayne Jang MD 07/05/16 1804: Nikkie Foss DO July 05, 2016 11:34 Wayne Jang MD July 05, 2016 18:04
--- NOTE | 2016-07-05 14:18 | PCM.PNMED ---
Subjective Date of Service July 05, 2016 Subjective Claudia Michelle is a 60 year old woman with a PMH of right infiltrating ductal carcinoma of the breast s/p chemotherapy, radiation, and mastectomy with reconstruction in 2011, OA, and GERD who presented to the hospital with left sided chest pain which radiated to her jaw. Patient has strong family history of history of coronary artery disease, her father had [place] when he was 62. Patient has been treated in the hospital for possible pneumonia. In the hospital she developed atrial fibrillation with rapid ventricular response. Patient will need to stress test to rule out coronary artery disease. Today patient feels well and has no complaints. Exam Vital Signs Vital Sign - Last Date Time Temp Pulse Resp B/P Pulse Ox O2 Delivery O2 Flow Rate FiO2 07/05/16 12:00 36.6 78 16 112/71 98 Room Air Intake and Output 07/04/16 07/04/16 07/05/16 Cumulative From/Thru 15:00 23:00 07:00 07/02/16 23:36 - 07/05/16 05:56 Intake Total 300 ml 950 ml 4250 ml Output Total 400 ml 5975 ml Balance -100 ml 950 ml -1725 ml Intake Oral 300 ml 950 ml 3250 ml IV Total 1000 ml Output Urine Total 400 ml 5975 ml # Voids 3 3 # Bowel Movements 3 Exam Gen: A/O x3 pleasant cooperative woman in mild acute distress secondary to chest pain with inspiration Neck: Supple, non tender, no thyromegaly, no JVD, Full ROM HEENT: PERRL, EOMI, no scleral icterus, no conjunctival pallor, mucous membranes moist CV: Rate and rhythm, no murmurs rubs or gallops Resp: Lungs clear to auscultation bilaterally, no wheezing rales or rhonchi, pain with deep inspiration Chest: Reconstructed right breast, no tenderness to sternal palpation Abd: Soft, non tender, no organomegaly, no rebound masses or guarding Extr: No cyanosis clubbing or edema, good muscle tone Neuro: CN 2-12 grossly intact, no focal neurologic deficit Psych: pleasant and appropriate mood and affect. REVIEW OF SYSTEMS: GENERAL:no malaise, no fevers., SEE HPI HEENT: Negative for frequent or significant headaches NECK: Negative for lumps, goiter, pain and significant neck swelling All other reviewed and negative other than HPI. IVs and Medications Medications Reviewed: Medications were reviewed in detail Lab and Diagnostics Result Diagram: 07/05/16 0320 07/05/16 0320 Microbiology Quantiferon Gold Pending Resp PCR negative S.pneumonia urine antigen negative Blood culture negative X-Rays, CTs and MRIs CT ANGIO CHEST PULMONARY EMBOLISM IMPRESSION: No evidence of pulmonary embolism. Possible developing/early pulmonary edema. Right apical presumed scarring/atelectasis although technically indeterminate. This could be followed up with serial PA and lateral chest radiographs, or CT surveillance at clinical discretion. Dictated by: Jose Beverly M.D. on 07/03/2016 at 9:46 12-lead ECG Sinus tach at 107 Assessment & Plan Claudia Michelle is a 60 year old woman with a PMH of right infiltrating ductal carcinoma of the breast s/p chemotherapy, radiation, and mastectomy with reconstruction in 2011, OA, and GERD who presents this evening having woken from sleep with right sided chest pain with deep inspiration with radiation to the jaw. Hospital day #3 Typical chest pain with new onset of atrial fibrillation, present on admission - stable -EKG - personally reviewed - nephrectomy for normal sinus rhythm. CT angio chest negative for PE. Troponin normal 3. -Patient does have a strong family history of coronary artery disease with her father having 3 MIs. -CHADS-Vasc of 0. Vision does not require anticoagulation, aspirin will be sufficient -TSH, T4 = normal -Echocardiogram unremarkable -Chest x-ray - personally reviewed - likely showing scarring not pneumonia. Patient has no elevated white count, negative procalcitonin 2, no fever, clear lungs. We will stop antibiotics. Plan -We will order an nuclear medicine exercise stress test. -Lipid panel in a.m. - Aspirin. - Nuclear medicine stress test - Stop antibiotics History of right breast cancer, present on admission, chronic. Stable -s/p radiation therapy 2011, chemotherapy with ongoing Letrozole therapy, mastectomy with reconstruction 2011 -Delayed onset radiation pneumonitis, but interval between radiation therapy and sudden onset of symptoms renders this less likely -Continue home Letrozole 2.5 mg PO daily Osteopenia, present on admission, chronic. Stable. -Continue home Alendronate -Continue home calcium supplement Possible tuberculosis, poa, active -Patient has no signs or symptoms of TB. Her radiological findings are more consistent with radiation and scarring. -Quanterferon gold is pending however patient was cleared for discharge by Dr. Au. We will left isolation precautions patient can undergo the stress test. Other chronic conditions managed with home meds: Neuropathy: Continue home Gabapentin 300 PO HS Anxiety: Continue home Diazepam 2.5 PO HS PRN GERD: Famotidine 20 mg PO q12 Allergic Rhinitis: Continue home Fluticasone 0.05% nasal spray PRN Code Status: FULL CODE Disposition: Anticipate patient can be discharged home tomorrow. GI Prophylaxis: H2 ros VTE Prophylaxis: Sub-Q Enoxaparin VTE Mechanical Devices: Intermittant Pneumatic CD Resuscitation Status: CPR: Attempt Resuscitation Time spent 40 min Attending Statement Patient was seen and examined by me today. I confirmed pertinent physical exam findings and agree with physical exam as documented. I agree with overall assessment and plan of care as documented. Labs, radiology tests reviewed. Plan of care, medication side effects, home medication, diagnostic procedures and available alternatives were discussed and reviewed with the patient. All questions answered. Patient verbalized understanding, approved and agreed to plan of care Nikkie Foss DO July 05, 2016 13:43 Wayne Jang MD July 05, 2016 15:38
--- NOTE | 2016-07-05 16:25 | NUR ---
Social Work Note: Readiness for Discharge Data& Assessment: Per MD pt is getting closer to being medically ready for discharge. Pt will get a stress test and lipid panel completed tomorrow. SW me with pt at bedside to confirm discharge plan and assess for any unmet needs. Pt confirmed plan to discharge home via POV when medically ready. Pt feels she is ambulating at baseline. Pt denies any other needs. No other discharge needs identified. SW to continue to follow. Plan: Anticipated discharge home via POV when medically ready. Pt denies any other needs. No other discharge needs identified. SW to continue to follow. DINORA Willett
--- NOTE | 2016-07-05 17:54 | NUR ---
Home Medications/Education Pt home medication Vesicare unavailable for morning med pass. Medication was non-administered. Pt's brought in medication during afternoon. Medication was sent to pharmacy and given to Manav pharmacist for validation. Pharmacist to retime medication administration for evening med pass. glass technician/installer to bring medication back up to [facility]. Pt to have stress test at 7:15am. Educated to no caffeine, no chocolate, or tea (including herbal teas per nuclear medicine). Pt voiced understanding. Pt to be NPO after midnight.
[2016-07-06 02:31] VITALS: BP 120/77; PULSE 63; RESP 20; O2SAT 96
--- NOTE | 2016-07-06 05:37 | NUR ---
NPO Pt has been NPO since 0000 for stress test this AM. Pt has not had any caffein, chocolate, or tea this shift. Pt c/o arthritic pain 2/ x1 this shift, administered PRN Tylenol and effective. VSS and Tele SR.
[2016-07-06 05:42] VITALS: BP 126/77; PULSE 74; RESP 20; O2SAT 96
[2016-07-06 07:51] VITALS: BP 100/65; PULSE 86; O2SAT 96
[2016-07-06 11:06] VITALS: PULSE 88
[2016-07-06 12:29] VITALS: BP 109/75; PULSE 90; RESP 20; O2SAT 99
[2016-07-06] MEDS: Magnesium Chloride SR 64 mg ER24 Tablet PO SCH (12:40)
[2016-07-06] MEDS: Ascorbic Acid 500 mg Tablet PO SCH (12:41)
[2016-07-06] MEDS: SOLIFENACIN PO SCH (12:44)
--- NOTE | 2016-07-06 13:54 | NUR ---
Stress test/held medications Pt off unit from [id number] for stress test with nuclear medicine. Pt off [employer], Identified notified. Pt transported by w/c. Pt's morning medications held due to NPO status. Pt requested medications to be given upon return. Medications administered approximately 1200.
--- NOTE | 2016-07-06 15:00 | DRSVH ---
PROCEDURE: 1 DAY TREADMILL STRESS TEST INDICATIONS: Chest pain. COMPARISON: None. Radiopharmaceutical: Stress dose 26.1 mCi of technetium 99 tetrofosmin Rest dose 8.37 mCi of technetium 99 tetrofosmin Indication for procedure: 60 year-old woman with chest discomfort and family history of heart disease FINDINGS: Graded exercise stress test: Following informed consent patient walked on Brian protocol for 9 minute s and 1 second. Patient had normal heart rate and blood pressure response. Study was terminated due t o shortness of breath. Patient had no ectopy and no significant ST segment changes. Cruz treadmill sc ore is 9 consistent with low risk study. Raw data: Normal myocardial tracer uptake. Lung heart ratio is normal. Myocardial perfusion imaging: There is no evidence of ischemia or prior infarct. Quantitative gated SPECT: at peak stress ejection fraction is 93%. Rest ejection fraction is 61%. No focal wall motion abnormalities seen. IMPRESSION: Low risk graded exercise stress test with myocardial perfusion imaging. No evidence of ischemia or prior infarct. Normal wall motion left ventricular systolic function. Good exercise capacity for age. Dictated by: Yudelka Ott M.D. on 07/06/2016 at 14:53 Approved by: Yudelka Ott M.D. on 07/06/2016 at 14:58
--- NOTE | 2016-07-06 15:14 | PCM.DIMED ---
Nikkie Foss DO 07/06/16 1514: Discharge Instructions Date of Service July 06, 2016 Dates of Hospitalization July 03, 2016 at 03:12 Discharge Diagnosis Discharge Diagnosis Typical chest pain with new onset of atrial fibrillation, present on admission History of right breast cancer, present on admission, chronic. Stable Osteopenia, present on admission, chronic. Stable. Possible tuberculosis, poa, active Medication Instructions Please take an 81 mg aspirin daily. Diet No restrictions Activity Limited until seen by PCP Call your provider Shortness of breath Patient Instructions Please follow up with your PCP in about 1 week. Please ask about outpatient appointment with cardiology regarding your new onset of Atrial fibrillation. Follow-up Provider: Jimmy Jaramillo MD Follow-up with PCP in: 1 week Ludin Price MD 07/08/16 0756: Discharge Instructions Attending's Statement Patient seen and examined with housestaff. Agree with all attached documentation. Nikkie Foss DO July 06, 2016 15:14 Ludin Price MD July 08, 2016 07:56
[2016-07-06] MEDS ORDERED: ASPI-973 PO (15:15)
--- NOTE | 2016-07-06 16:14 | NUR ---
Discharge Pt discharged to home, with transportation by her POV. Pt's IV dc'd intact, telemetry was removed and tech notified. Pt's discharge instructions, follow up appointments and new medications were reviewed. All questions were answered and pt voiced understanding. Pt's belongings had been gathered for transport with patient. Pt was escorted off unit by RN.
--- NOTE | 2016-07-06 17:05 | PCM.DC.MED ---
Discharge Summary Date of Service July 06, 2016 Dates of Hospitalization Date of Hospital Admission July 03, 2016 at 03:12 Date of Discharge: July 06, 2016 Providers: Admitting Physician: Christianne Fletcher DO Primary Care Physician: Jimmy Jaramillo MD Attending Physician: Christianne Fletcher DO Diagnosis at Time of Discharge Diagnosis at Time of Discharge Typical chest pain with new onset of atrial fibrillation, present on admission History of right breast cancer, present on admission, chronic. Stable Osteopenia, present on admission, chronic. Stable. Possible tuberculosis, poa, active Procedures XRay, CTs & MRIs CT ANGIO CHEST PULMONARY EMBOLISM IMPRESSION: No evidence of pulmonary embolism. Possible developing/early pulmonary edema. Right apical presumed scarring/atelectasis although technically indeterminate. This could be followed up with serial PA and lateral chest radiographs, or CT surveillance at clinical discretion. Dictated by: Jose Beverly M.D. on 07/03/2016 at 9:46 ECG 12 Lead Sinus tach at [address] Tovar's H and P: "Claudia Michelle is a 60 year old woman with a PMH of OA , GERD, ductal carcinoma of the right breast s/p mastectomy radiation and chemotherapy in 2011, who presents having woken this evening with chest pain on deep inspiration localized to the right sternal border around rib 3 with radiation to the jaw. She states that prior to this she was feeling well, and that she has not experienced similar symptoms in the past. Her last oncology check up was in February and was apparently reassuring, she continues on hormonal chemotherapy with Letrozole. She denies cough, fevers, chills, nausea, vomiting, hemoptysis, unintentional weight loss, or changes in bowel or bladder habits. She describes the pain as a pressure and tightness in the right sternal area 7-8/10 at it's worst and aggravated by deep inspiration. She denies any travel overseas or to the [facility], her most recent trip was a weekend in [place] around [facility] where she did not engage in any outdoor activities. 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 In the ED that patient was found to be tachycardic and mildly hypertensive which together with her suggestive history prompted a CT angio which was negative for PE but was suggestive of early RUL and interstitial pneumonia. Troponin was negative x2 and the patient's laboratory evaluation was largely unremarkable. " Hospital Course Claudia Michelle is a 60 year old woman with a PMH of right infiltrating ductal carcinoma of the breast s/p chemotherapy, radiation, and mastectomy with reconstruction in 2011, OA, and GERD who presents this evening having woken from sleep with right sided chest pain with deep inspiration with radiation to the jaw. Hospital day #3 Typical chest pain with new onset of atrial fibrillation, present on admission, resolved -CT angio chest negative for PE. Troponin normal 3. -Patient does have a strong family history of coronary artery disease with her father having 3 MIs. -CHADS-Vasc of 0. 81 mg ASA. -TSH, T4 = normal -Echocardiogram unremarkable -Chest x-ray likely showing scarring not pneumonia. Patient has no elevated white count, negative procalcitonin 2, no fever, clear lungs. We will stop antibiotics. -Nuclear medicine exercise stress test: low risk for CAD -Lipid panel showing mildly elevated LDL and non-HDL. Discuss statin versus dietary change/monitoring with PCP. History of right breast cancer, present on admission, chronic. Stable -s/p radiation therapy 2011, chemotherapy with ongoing Letrozole therapy, mastectomy with reconstruction 2011 -Continued home Letrozole 2.5 mg PO daily Osteopenia, present on admission, chronic. Stable. -Continued home Alendronate -Continued home calcium supplement Possible tuberculosis, present on admission, active -Patient has no signs or symptoms of TB. Her radiological findings are more consistent with radiation and scarring. -Quanterferon gold is pending however patient was cleared for discharge by Dr. Au. We will left isolation precautions patient can undergo the stress test. Other chronic conditions managed with home meds: Neuropathy: Continued home Gabapentin 300 PO HS Anxiety: Continued home Diazepam 2.5 PO HS PRN GERD: Famotidine 20 mg PO q12 Allergic Rhinitis: Continued home Fluticasone 0.05% nasal spray PRN Exam Vital Signs (Last) Date Time Temp Pulse Resp B/P Pulse Ox O2 Delivery O2 Flow Rate FiO2 07/06/16 12:29 36.7 90 20 109/75 99 Room Air Exam Gen: A/O x3 pleasant cooperative woman in mild acute distress secondary to chest pain with inspiration Neck: Supple, non tender, no thyromegaly, no JVD, Full ROM HEENT: PERRL, EOMI, no scleral icterus, no conjunctival pallor, mucous membranes moist CV: Rate and rhythm, no murmurs rubs or gallops Resp: Lungs clear to auscultation bilaterally, no wheezing rales or rhonchi, pain with deep inspiration Chest: Reconstructed right breast, no tenderness to sternal palpation Abd: Soft, non tender, no organomegaly, no rebound masses or guarding Extr: No cyanosis clubbing or edema, good muscle tone Neuro: CN 2-12 grossly intact, no focal neurologic deficit Psych: pleasant and appropriate mood and affect. Test 07/03/16 00:07 07/03/16 02:25 07/03/16 02:50 07/03/16 06:00 Prothrombin Time 9.7sec (8.1-12.5) Prothromb Time International Ratio 0.91ratio D-Dimer < 0.50mg/L FEU (<0.50) Lactic Acid Level 1.5mmol/L (0.4-2.0) Hold Barrera Top Tube Received (Received) Urine Color Straw (YELLOW) Urine Appearance Clear (CLEAR,HAZY) Urine pH 6.5 (5.0-8.0) Urine Specific [place] 1.016 (1.003-1.035) Urine Protein Negativemg/dL (NEG,TRACE) Urine Glucose (UA) Negativemg/dL (NEGATIVE) Urine Ketones Negativemg/dL (NEGATIVE) Urine Occult Blood Negative (NEGATIVE) Urine Nitrite Negative (NEGATIVE) Urine Bilirubin Negative (NEGATIVE) Urine Urobilinogen Normalmg/dL (NORMAL) Urine Leukocyte Esterase Negative (NEGATIVE) Urine RBC 0-2/hpf (0-2) Urine WBC 0-5/hpf (0-5) Urine Epithelial Cells Few/hpf (NONE-MOD) Urine Crystals None seen (NONE SEEN) Urine Bacteria None/hpf (NONE-FEW) Urine Hyaline Casts None/lpf (NONE) Urine Granular Casts None seen (NONE SEEN) Urine Waxy Casts None seen (NONE SEEN) Urine Red Blood Cell Casts None seen (NONE SEEN) Urine White Blood Cell Casts None seen (NONE SEEN) Urine Mucus None seen (None Seen) Urine Trichomonas None seen (NONE SEEN) Urine Yeast None (NONE SEEN) Urinalysis Comment None Urine Culture Reflexed Not indicated Test 07/03/16 07:03 07/04/16 05:55 5/15/17 03:20 07/06/16 05:25 Phosphorus Level 2.9mg/dL (2.5-4.9) Magnesium Level 2.2mg/dL (1.6-2.6) Total Bilirubin 0.3mg/dL (0.0-1.2) Aspartate Amino Transf (AST/SGOT) 23U/L (0-50) Alanine Aminotransferase (ALT/SGPT) 20U/L (0-32) Alkaline Phosphatase 43U/L (25-165) Total Protein 5.6g/dL (6.4-8.4) Albumin 3.7g/dL (3.4-5.0) Erythrocyte Sedimentation Rate 20mm/hr (0-40) Troponin T 0.010ug/L (0.0-0.011) Pro-B-Type Natriuretic Peptide 302.9pg/mL (0-287) Thyroid Stimulating Hormone (TSH) 1.540uIU/mL (0.450-4.500) Free Thyroxine 1.30ng/dL (0.82-1.77) White Blood Count 5.4th/mm3 (3.8-10.1) Red Blood Count 4.36mil/mm3 (3.90-5.20) Hemoglobin 13.1g/dL (12.0-15.6) Hematocrit 38.6% (35.0-46.0) Mean Corpuscular Volume 88.5fL (81-100) Mean Corpuscular Hemoglobin 30.0pg (27.0-35.0) Mean Corpuscular Hemoglobin Concent 33.9% (32.0-37.0) Red Cell Distribution Width 12.8% (12.3-15.4) Platelet Count 201bil/L (150-400) Neutrophils (%) (Auto) 47.6% (40-74) Lymphocytes (%) (Auto) 42.0% (14-46) Monocytes (%) (Auto) 7.4% (4-12) Eosinophils (%) (Auto) 2.6% (0-5) Basophils (%) (Auto) 0.2% (0-3) Sodium Level 141mEq/L (134-144) Potassium Level 4.4mEq/L (3.5-5.2) Chloride Level 102mEq/L (97-108) Carbon Dioxide Level 24mmol/L (18-29) Blood Urea Nitrogen 20mg/dL (6-24) Creatinine 0.50mg/dL (0.57-1.00) Estimat Glomerular Filtration Rate 181mL/min (>59) Glucose Level 108mg/dL (60-99) Calcium Level 10.1mg/dL (8.5-10.1) Procalcitonin 0.08ng/mL (0.00-0.08) Triglycerides Level 134mg/dL (0-149) Cholesterol Level 239mg/dL (100-199) LDL Cholesterol, Calculated 133.200mg/dL (0-99) VLDL Cholesterol 26.800mg/dL HDL Cholesterol 79mg/dL (>39) Cholesterol/HDL Ratio 239.00 (0.0-4.4) Microbiology Results Quantiferon Gold Pending Resp PCR negative S.pneumonia urine antigen negative Blood culture negative Discharge Medications Discharge Medications ([Dante B Supplement]) 1 CAP PO BID (Reported) 2 IN AM; 1 IN PM ([Benedryl]) 25 MG PO HS PRN (Reported) Alendronate (Alendronate) 35 Mg Tablet 70 MG PO QW (Reported) Ascorbic Acid (Vitamin C) 500 Mg Capsule.er 500 MG PO DAILY (Reported) Aspirin (Aspirin) 81 Mg Tablet 81 MG PO DAILY Prescribed by: LAUREN FOSS DO Cholecalciferol (Vitamin D3) (Vitamin D3) 5,000 Unit Tablet 5,000 UNIT PO DAILY (Reported) Letrozole (Letrozole) 2.5 Mg Tablet 2.5 MG PO DAILY (Reported) Omeprazole Magnesium (Prilosec Otc) 20 Mg Tablet.dr 20 MG PO BID (Reported) Oxycodone HCl/Acetaminophen (Endocet 10-325 mg Tablet) 1 Each Tablet 0.5-1 EACH PO 4hrs (Reported) Solifenacin Succinate (Vesicare) 5 Mg Tablet 5 MG PO AM (Reported) Sulindac (Sulindac) 150 Mg Tablet 150 MG PO BID (Reported) Miscellaneous Medications Acetaminophen (Acetaminophen) 500 Mg Tablet 500-1,000 MG PO (Reported) Additional med instructions Please take an 81 mg aspirin daily. Followup Plan Disposition: Home Discharge Diet: No restrictions Discharge Activity: Limited until seen by PCP Patient Instructions Please follow up with your PCP in about 1 week. Please ask about outpatient appointment with cardiology regarding your new onset of Atrial fibrillation. Follow-up Provider: Jimmy Jaramillo MD Follow-up with PCP in: 1 week Time spent 45 min Attending Statement Patient seen and examined with housestaff. Agree with all attached documentation. Lauren Foss DO July 06, 2016 17:05 Ludin Price MD July 08, 2016 07:58
== END 2016-07-06 16:00 | disposition home or self-care (01) | DRG 195 ==
LOC: SED 23:35 → MPC 07-03 03:12 → PCC 07-04 08:57
PROVIDERS: ADMIT Internal Medicine; ATTEND Internal Medicine
DX: J18.9 Pneumonia, unspecified organism (principal); M85.80 Other specified disorders of bone density and structure, unspecified site; K21.9 Gastro-esophageal reflux disease without esophagitis; Z85.3 Personal history of malignant neoplasm of breast; R07.1 Chest pain on breathing; I48.91 Unspecified atrial fibrillation; F41.9 Anxiety disorder, unspecified; J30.9 Allergic rhinitis, unspecified; G62.9 Polyneuropathy, unspecified

== ENCOUNTER 2016-08-20 10:38 | Emergency (ER) | payer OTHER ==
[~2016-08-20] VITALS: Ht 162.6 cm; Wt 65.0 kg
[~2016-08-20 10:38] MED LIST changes: +ACET-171 PO; -ACET-97 PO; +ASCO500C6 PO; -ASCO500T8 PO; +ASPI-973 PO; -CA C1TAB87 PO; -DIAZ5TAB3 PO; -FLUT16SP2 NS; -GABA-502 PO; -MAG770OR3 PO; -OMEP-113 PO; +OMEP20TA24 PO; -OXYC-245 PO; +OXYC1TAB91 PO; -PAMPRIN PO
--- NOTE | 2016-08-20 10:43 | ED.REPORT ---
HPI-Chest Pain 40 and Over Date of Service Aug 20, 2016 ED Provider: Amol Leblanc Pt is a 60 year old female with a history of A-fib who presents to the ED complaining of an A-fib episode onset 30 minutes ago. She c/o associated SOB, lightheadedness, and diaphoresis. She denies chest pain, weakness, fever, cough , nausea, vomiting, and diarrhea. Per pt, her heart rate was 200 and dropped down to 160 prior to arrival. Nursing Notes Stated Complaint: POSSIBLE A-FIB Chief Complaint: A-fib Nursing Notes Reviewed: Yes Allergies: Coded Allergies: Pork (Verified Allergy, Severe, JOINT PAIN, 07/03/16) hydromorphone (Verified Allergy, Severe, SEVERE DRUGGED FEELING + NAUSEA, 03/13/13) tolterodine (Verified Allergy, Unknown, dry mouth, 08/20/16) hydrocodone (Verified Adverse Reaction, Severe, NAUSEA, 03/13/13) oxybutynin (Verified Adverse Reaction, Severe, DRY MOUTH, LIGHT-HEADED, ) sumatriptan (Verified Adverse Reaction, Severe, NAUSEA, TACHYCARDIA, LIGHT -HEADED, 03/13/13) sumatriptan succinate (Verified Adverse Reaction, Severe, NAUSEA, TACHYCARDIA, LIGHT-HEADED, 03/13/13) tolterodine tartrate (Verified Adverse Reaction, Unknown, DECREASED LIBIDO , 05/14/14) Uncoded Allergies: SHELLFISH (Allergy, Severe, 07/03/16) Scheduled ([Dante B Supplement]) 1 CAP PO BID 2 IN AM; 1 IN PM ([Benedryl]) 25 MG PO HS PRN Alendronate (Alendronate) 35 Mg Tablet 70 MG PO QW Ascorbic Acid (Vitamin C) 500 Mg Capsule.er 500 MG PO DAILY Aspirin (Aspirin) 81 Mg Tablet 81 MG PO DAILY Cholecalciferol (Vitamin D3) (Vitamin D3) 5,000 Unit Tablet 5,000 UNIT PO DAILY Flecainide Acetate (Flecainide Acetate) 50 Mg Tablet 50 MG PO BID Letrozole (Letrozole) 2.5 Mg Tablet 2.5 MG PO DAILY Metoprolol Succinate ER (Toprol XL) 25 Mg Tablet 25 MG PO DAILY Omeprazole Magnesium (Prilosec Otc) 20 Mg Tablet.dr 20 MG PO BID Oxycodone HCl/Acetaminophen (Endocet 10-325 mg Tablet) 1 Each Tablet 0.5-1 EACH PO 4hrs Solifenacin Succinate (Vesicare) 5 Mg Tablet 5 MG PO AM Sulindac (Sulindac) 150 Mg Tablet 150 MG PO BID Miscellaneous Medications Acetaminophen (Acetaminophen) 500 Mg Tablet 500-1,000 MG PO General Time Seen by MD: 10:42 Chief Complaint Other (A-fib) Hx Obtained From: Patient Arrived By: Walk-in Sudden in Onset?: Yes Onset Occurred: 16 - 30 minutes ago Symptom Duration: Duration unknown Severity: Current: No pain currently Severity: Maximum: No pain Recent Healthcare: Recent doctor visit, Recent hospitalization Similar Sx Previous: No Past Medical History Past Medical History Breast cancer OA Clavicle fx GERD Over-active bladder A-fib Denies: Congestive heart failure, Diabetes mellitus, Hypertension Reports: Urinary tract infection Past Surgical History Knee surgeries Radial keratotomiesx4 Oral surgery T&A Breast biopsy RFA Rt leg Right mastectomy and reconstruction Reports: Tonsillectomy Smoking History Unknown if Ever Smoker Social History Alcohol Use: 1-3 per week Drug Use: Denies drug use Other Social History: Good social support Ambulatory Status Independent Review of Systems Constitutional: Denies: Fever, Weakness - generalized Respiratory: Reports: Shortness of breath, Denies: Non-productive cough Cardiovascular: Denies: Chest pain GI: Denies: Diarrhea, Nausea, Vomiting Skin: Reports Diaphoresis Neurologic: Reports: Lightheaded Complete sys rev & neg: except as marked. Physical Exam Initial Vital Signs Vital Signs (First) Date Time Temp Pulse Resp B/P Pulse Ox O2 Delivery O2 Flow Rate FiO2 08/20/16 10:47 36.7 168 18 142/90 98 Room Air Initial VS: Reviewed Head / Eyes: Atraumatic, Normocephalic Neck: Supple, Full range of motion Extremities: Vascular intact, Neuro intact Skin: Warm, Dry, No cyanosis Neurologic: Alert, Oriented, Nonfocal Psychiatric: Mood/affect normal, Behavior normal General/Constitutional: Awake, Alert, Cooperative Respiratory / Chest: Atraumatic, Breath sounds NL, Breath sounds = bilat CARDIOVASCULAR: Irregularly irregular with a rate of 160. No peripheral edema. Abdomen: Atraumatic, Soft, Non-tender Interpretation & Diagnostics Lab Results Interpretation Result Diagram: 08/20/16 1055 08/20/16 1055 Test 08/20/16 10:55 White Blood Count 5.9th/mm3 (3.8-10.1) Red Blood Count 5.00mil/mm3 (3.90-5.20) Hemoglobin 15.1g/dL (12.0-15.6) Hematocrit 44.4% (35.0-46.0) Mean Corpuscular Volume 88.8fL (81-100) Mean Corpuscular Hemoglobin 30.2pg (27.0-35.0) Mean Corpuscular Hemoglobin Concent 34.0% (32.0-37.0) Red Cell Distribution Width 13.0% (12.3-15.4) Platelet Count 218bil/L (150-400) Neutrophils (%) (Auto) 53.4% (40-74) Lymphocytes (%) (Auto) 35.2% (14-46) Monocytes (%) (Auto) 9.1% (4-12) Eosinophils (%) (Auto) 1.9% (0-5) Basophils (%) (Auto) 0.2% (0-3) Sodium Level 138mEq/L (134-144) Potassium Level 3.9mEq/L (3.5-5.2) Chloride Level 97mEq/L (97-108) Carbon Dioxide Level 22mmol/L (18-29) Blood Urea Nitrogen 23mg/dL (6-24) Creatinine 0.58mg/dL (0.57-1.00) Estimat Glomerular Filtration Rate 152mL/min (>59) Glucose Level 108mg/dL (60-99) Calcium Level 9.9mg/dL (8.5-10.1) Magnesium Level 2.2mg/dL (1.6-2.6) Total Bilirubin 0.4mg/dL (0.0-1.2) Aspartate Amino Transf (AST/SGOT) 24U/L (0-50) Alanine Aminotransferase (ALT/SGPT) 23U/L (0-32) Alkaline Phosphatase 64U/L (25-165) Troponin T 0.010ug/L (0.0-0.011) Total Protein 7.5g/dL (6.4-8.4) Albumin 4.5g/dL (3.4-5.0) ECG Interpretation ECG Interpretation: Atrial fibrillation with a rate of 169 Time: 10:55 Interpreted by: ED physician ECG Interpretation: Sinus rhythm with a rate of 89, Probable left atrial enlargement Time: 14:28 Interpreted by: ED physician Re-Eval/Medical Decision Source of Hx: Old records Time of Eval: 12:17 Patient Status: Condition improved Re-Evaluation/Progress Note: Pt rechecked. She is still in A-fib, but her heart rate has decreased. She reports that her previous episodes of A-fib have be stopped with Cartizem. All questions were answered. Time of Eval: 12:29 Patient Status: Condition improved Re-Evaluation/Progress Note: Pt rechecked. Informed pt of options for treatment. All questions were answered. Time of Eval: 12:44 Re-Evaluation/Progress Note: Pt rechecked. Reviewed treatment options for pt, and she reports that she wants to be treated with Adenosine. The treatment did not work. She reports that she would like to try Rythmol medication. All questions were answered. Time of Eval: 13:06 Re-Evaluation/Progress Note: Pt rechecked. Informed pt of consult with on-call ship scraper and plan for treatment. Pt understands and agrees with plan for treatment. All questions were answered. Time of Eval: 14:57 Patient Status: Condition improved Re-Evaluation/Progress Note: Pt rechecked. Informed pt of plan for discharge. Pt understands and agrees with plan for discharge. F/U instructions and RTER warnings given. All questions addressed. Consultation #1: Referral / Consult Name: Yudelka Ott MD Consulted With: Cardiology Call Returned at: 12:55 Shopper Marketing Manager: Agrees with eval, Agrees with plan Note: Discussed pt's case and plan for treatment. Recommends 250 mg of Flecainide Acetate. Consultation #2: Referral / Consult Name: Yudelka Ott MD Call Returned at: 14:57 Shopper Marketing Manager: Will see patient, Agrees with eval, Agrees with plan Note: Dr. Ott is at the pt's bedside now. Counseled Regarding: Diagnosis, Lab results, Need for follow-up, When/why to return to ED Discharge & Departure Primary Impression: Atrial fibrillation Atrial fibrillation type: unspecified Qualified Code: I48.91 - Unspecified atrial fibrillation Disposition: Home Discharge Condition All VS Reviewed: Yes Condition: Stable Patient Instructions: A-fib (Atrial Fibrillation) (ED) Additional Instructions: Cardioversion occurred in the emergency department after the administration of [address] Ott saw you in our department and asked to call her payroll and benefits assistant Dayami at [phone] to schedule follow-up appointment. In the meantime, Dr. Ott recommends the following: Aspirin 325 mg daily Toprol-XL 25 mg daily Flecainide 50 mg twice daily. These last two prescriptions have been sent to the [facility] pharmacy in [place]. Follow-up right away for chest pain, shortness of breath or fainting. Referrals: Jimmy Jaramillo MD (PCP) Yudelka Ott MD Attestation Portions of this note were transcribed by Loretta Kumari. I, Dr. Leblanc personally performed the history, physical exam and medical decision-making; I reviewed and confirmed the accuracy of the information in the transcribed note. Signed by: Parish Grimm, 08/20/16 and 11:40. copies to: Yudelka Ott MD; Jimmy Jaramillo MD, Kirk H MD Aug 20, 2016 10:42 Loretta Ellis Aug 20, 2016 10:52
[2016-08-20 10:47] VITALS: BP 142/90; PULSE 168; RESP 18; O2SAT 98
[2016-08-20] MEDS ORDERED: Diltiazem 5 mg/mL 5 mL Inj ONE (10:47)
[2016-08-20] MEDS ORDERED: Diltiazem 5 mg/mL 5 mL Inj IVPUSH ONE ×2 (10:50→11:20)
[2016-08-20 11:04] LABS: BASOPHILS % (AUTO) 0.2 % (0-3); EOSINOPHILS % (AUTO) 1.9 % (0-5); MONOCYTES % (AUTO) 9.1 % (4-12); Mean Corpuscular Hemoglobin 30.2 pg (27.0-35.0); Mean Corpuscular Volume 88.8 fL (81-100); NEUTROPHILS % (AUTO) 53.4 % (40-74); Platelet Count 218 bil/L (150-400)
[2016-08-20 11:33] LABS: TROPONIN T 0.01 ug/L (0.0-0.011)
[2016-08-20 11:44] LABS: Magnesium 2.2 mg/dL (1.6-2.6)
[2016-08-20] MEDS ORDERED: Adenosine 3 mg/mL 2 mL Inj IVPUSH ONE (12:20)
[2016-08-20] MEDS ORDERED: METO25TA3 PO (14:57)
[2016-08-20] MEDS ORDERED: FLC50T PO (14:57)
[2016-08-20 15:19] VITALS: BP 131/77; PULSE 95; RESP 20; O2SAT 97
--- NOTE | 2016-08-21 00:18 | CONS ---
[address] [address] CONSULTATION REPORT PATIENT: RAOUL DE ANDA : 1955 MR#: [id number] ADMIT: 08/20/2016 JOB ID: [id number] CARDIOLOGY CONSULTATION: DATE OF SERVICE: 08/20/2016 CHIEF COMPLAINT: Palpitations. 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 Cardiology is consulted to assist with management of paroxysmal Afib by Dr. Leblanc. I recommended an attempt at pill in pocket approach with chemical cardioversion with flecainide 300 mg daily. The patient received this medication, and within about an hour, she converted out of AFib with RVR to normal sinus rhythm. Initially, when she presented, her heart rate was greater than 150 beats per minute. In fact, was 170 beats per minute with preserved blood pressure. She had shortness of breath, lightheadedness, and sweating. She was initially treated with rate control in the emergency department, and then after she converted to flecainide, I gave her some medication for stroke prevention, namely aspirin and prescribed Toprol-XL 25 mg daily and flecainide 50 mg twice a day as an outpatient. At the time I saw her in the department, the patient was pain free and had no complaints. PAST MEDICAL HISTORY: 1. Paroxysmal Afib, which came to medical attention July 03, 2016. When patient presented with AFib with RVR, at that time, heart rate was 135 beats per minute. She had paroxysmal AFib during the hospitalization. 2. History of ductal right breast carcinoma, status post mastectomy, radiation, and chemotherapy in 2011. 3. Osteoarthritis. 4. Reflux. 5. Overactive bladder. 6. History of intermittent urinary tract infections. PAST SURGICAL HISTORY: 1. Mastectomy and reconstruction. 2. Knee surgeries. 3. Oral surgery. 4. Eye surgery. 5. Tonsils and adenoids. 6. For venous insufficiency, radiofrequency ablation of her right leg. FAMILY HISTORY: Two cousins with breast cancer, and one male. Father at age 72 of an RI. Mother at 89 with dementia. No family history of AFib or sudden that she knows of. She has an uncle with lung and brain cancer. SOCIAL HISTORY: She is an oncology nurse. She rarely drinks alcohol. She does not smoke. ALLERGIES: 1. HYDROMORPHONE. 2. HYDROCODONE. 3. OXYBUTYNIN. 4. SUMATRIPTAN. 5. TOLTERODINE. HOME MEDICATIONS: 1. Aspirin 81 mg daily. 2. Letrozole 2.5 mg daily. 3. Omeprazole 20 mg twice a day. 4. VESIcare 5 mg every day. 5. mg twice a day. REVIEW OF SYSTEMS: No bright red blood per rectum. No hematuria. No fevers. She does report generalized weakness. She reported shortness of breath, but denied cough. She denied chest pain. She denied nausea or vomiting. She did report lightheadedness and diaphoresis. Otherwise, 10 point review of systems is negative. PHYSICAL EXAMINATION: Vital signs in the emergency department: Temperature 36.7, blood pressure 142/90, pulse 168 beats per minute. She was satting 98% on room air. When I saw her, blood pressure was 131/77 and pulse was 90 beats per minute, satting 97% on room air. General: A very pleasant well-nourished woman in no apparent distress. Eyes: No scleral icterus. Neck is supple. No lymphadenopathy. No carotid bruits. Heart: Normal S1, S2. No murmurs, rubs, or gallops. Lungs are clear to auscultation anteriorly. Abdomen is soft, positive bowel sounds. No hepatosplenomegaly. Extremities warm and well perfused. No clubbing, cyanosis, or edema. Skin: No rashes or lesions. LABORATORIES: Labs were reviewed including labs obtained in prior recent hospitalization in June 2016: CBC is normal. Differential is normal. Creatinine was normal. Potassium 3.9. Most recent magnesium at 2.3. Transaminases are normal. Troponin-T was negative. Total cholesterol 239, triglycerides 234, HDL 79, LDL 133. TSH, free T4 within normal limits as of July 04, 2016. INR was 0.9. Urinalysis during prior hospitalization was negative. IMAGING: Imaging obtained during most recent hospitalization included echocardiogram, July 04, 2016, which showed normal LV size, wall thickness, wall motion, LV systolic function. Ejection fraction 60% to 65%. Normal atrial size. No significant valvular abnormalities. Imaging included a graded exercise stress test with myocardial perfusion imaging. Patient walked on Brian protocol for 9 minutes and 1 second. She had normal heart rate and blood pressure response. She had no evidence of ischemia or prior infarct. Normal wall motion. CT PA protocol obtained during prior hospital visit demonstrated no PE, possible developing early pulmonary edema in right apical region, scarring atelectasis, but indeterminate. Of note, serology for QuantiFERON was not consistent with TB. Of note, after her conversion, her EKG showed Brugada like pattern in lead V1 with incomplete right bundle branch block pattern and ST elevation with downsloping ST segments. ASSESSMENT AND PLAN: In summary, this is a delightful 60-year-old woman with paroxysmal atrial fibrillation. She presented with atrial fibrillation with rapid ventricular response and converted to normal sinus rhythm chemically. The plan for this patient is to be evaluated by Dr. Enriquez to see how she is doing on medication and have a low threshold to pursue additional workup for Brugada pattern on the EKG while on flecainide administration. She has no family history of [id number] cardiac arrest or sudden cardiac , and she has no personal history of syncope. So, I do not think urgent workup is indicated; however, I do want her to be seen by my EP partner. Because of the surprising finding of Brugada pattern on EKG after chemical cardioversion, I would rather have this patient be seen by Dr. Enriquez rather than by a general imaging center manager. Thank you very much for the opportunity to participate in her care. PILY
== END 2016-08-20 15:22 | disposition home or self-care (01) ==
LOC: SED 10:38
DX: I48.91 Unspecified atrial fibrillation (principal); K21.9 Gastro-esophageal reflux disease without esophagitis; Z85.3 Personal history of malignant neoplasm of breast; Z79.82 Long term (current) use of aspirin; Z79.899 Other long term (current) drug therapy; Z88.5 Allergy status to narcotic agent; Z88.8 Allergy status to other drugs, medicaments and biological substances; Z91.018 Allergy to other foods
CPT/HCPCS: 36415; 80053; 83735; 84484; 85025; 93005; 94799; 96374; 96375; 99285; J0153